=== PATIENT | female | born 1935 | race Caucasian/White ===

== ENCOUNTER 2016-10-29 15:02 | Emergency (ER) | payer MEDICARE ==
[~2016-10-29] VITALS: Ht 167.6 cm; Wt 79.2 kg
[~2016-10-29 15:02] MED LIST: ACET-171 PO; ASCO100089 PO; ASPI81TA3 PO; BUPR-97 PO; CHOL10008 PO; CRAN450T4 PO; CYAN500L4 PO; DIAZ5TAB3 PO; FOLIC ACID PO; FURO-129 PO; GLUC-181 PO; HYDR-4003 PO; ISOS10TA8 PO; LACT1CAP73 PO; METO25TA99 PO; OMEG1CAP25 PO; PRAV10TA2 PO; RIVA20TA PO; UBID300C PO; VIT1TABL25 PO; ZOLP10TA5 PO
[2016-10-29 15:05] VITALS: BP 129/75; PULSE 58; RESP 20; O2SAT 93
--- NOTE | 2016-10-29 15:29 | ED.REPORT ---
HPI-Dyspnea / Wheezing Date of Service Oct 29, 2016 ED Provider: Satya Alcantar MD The pt is a 80 y/o female w/ a hx of CHF, PE, pulmonary HTN, and coronary atherosclerosis presenting to the ED complaining of SOB. She reports waking up 3 times in the middle of the night feeling like she is suffocating, and is short of breath with very mild exertion. The pt uses a pulse oximeter at home and reports her SaO2 levels being low w/ a high of 91%. She also describes feeling fatigued constantly as well as chronic constipation. Denies fever, CP, abdominal pain, vomiting, diarrhea, or nausea. The pt was last hospitalized for a PE two years ago and she reports pulmonary embolisms running in the family. Nursing Notes Stated Complaint: SHORTNESS OF BREATH/SENT FROM URGENT CARE Chief Complaint: SOB Nursing Notes Reviewed: Yes Allergies: Coded Allergies: No Known Allergies (Verified Allergy, Unknown, 11/16/14) Scheduled ([Folic Acid]) 1,000 MCG PO DAILY Ascorbic Acid (Vitamin C) 1,000 Mg Tab.chew 1,000 MG PO DAILY Aspirin Chew (Aspirin Chew) 81 Mg Tab.chew 81 MG PO DAILY Bupropion ER (Wellbutrin XL) 150 Mg Tab.er.24h 150 MG PO DAILY Cholecalciferol (Vitamin D3) (Vitamin D3) 1,000 Unit Tab.chew 1,000 UNIT PO DAILY Cyanocobalamin (Vitamin B-12) (Vitamin B-12) 500 Mcg Lozenge 500 MCG PO DAILY Furosemide (Lasix) 20 Mg Tablet 20 MG PO DAILY Furosemide (Lasix) 20 Mg Tablet 20 MG PO PRN Isosorbide MN (Isosorbide MN) 10 Mg Tablet 30 MG PO DAILY Lactobacillus Combo No.11 (Probiotic) 1 Each Cap.sprink 1 EACH PO DAILY Metoprolol Succinate ER (Metoprolol Succinate ER) 25 Mg Tab.er.24h 25 MG PO BID Madison-3 Fatty Acids/Fish Oil (Madison 3 Fish Oil Softgel) 1 Each Capsule.dr 2 EACH PO DAILY Pravastatin (Pravastatin) 10 Mg Tablet 10 MG PO HS Rivaroxaban (Xarelto) 20 Mg Tablet 20 MG PO 1600 Ubidecarenone (Co Q-10) 300 Mg Capsule 300 MG PO DAILY Vit A,C & E/Lutein/Minerals (Ocuvite with Lutein Tablet) 1 Each Tablet 1 EACH PO DAILY Scheduled PRN Acetaminophen (Acetaminophen) 500 Mg Tablet 1,000 MG PO DAILY PRN PRN For Fever Diazepam (Diazepam) 5 Mg Tablet 5 MG PO PRN PRN PRN For Anxiety Hydrocodone-Acetaminophen 5-325 mg (Hydrocodone-Acetaminophen 5-325 mg) 1 Each Tablet 1 EACH PO Q4-6H PRN PRN For Pain Zolpidem (Zolpidem) 10 Mg Tablet 10 MG PO HS PRN PRN For Insomnia Miscellaneous Medications Cranberry Fruit Concentrate (Cranberry) 450 Mg Tablet 500 MG PO Gluc/Tushar-MSM#1/C/Daniel/Romero/Bor (Osteo Bi-Flex Caplet) 1 Each Tablet 2 EACH PO General Time Seen by MD: 15:28 Chief Complaint Shortness of breath Hx Obtained From: Patient Sudden in Onset?: Yes Symptom Duration: Since onset Recent Healthcare: No recent hospitalization, Recent doctor visit Similar Sx Previous: Yes Past Medical History Past Medical History CHF Pulmonary HTN PE Mthfr Mutation Osteoporosis Spinal stenosis in the lumbar region Coronary atherosclerosis Past Surgical History None reported Family History Pt reports family hx of pulmonary embolisms Smoking History Unknown if Ever Smoker Social History Other Social History: Good social support Ambulatory Status Independent Review of Systems Constitutional: Reports: Fatigue, Denies: Fever Respiratory: Reports: Dyspnea on exertion, Parox nocturnal dyspnea, Shortness of breath Cardiovascular: Denies: Chest pain Complete sys rev & neg: except as marked. GI: Reports: Constipation (Chronic ), Denies: Abdominal pain, Diarrhea, Nausea, Vomiting Physical Exam Initial Vital Signs Vital Signs (First) Date Time Temp Pulse Resp B/P Pulse Ox O2 Delivery O2 Flow Rate FiO2 10/29/16 15:05 36.5 58 20 129/75 93 Room Air Initial VS: Reviewed Head / Eyes: Atraumatic, Normocephalic, PERRL ENT: Mucous membranes moist, Conjunctiva normal, No scleral icterus Extremities: Vascular intact, Neuro intact, No swelling, No tenderness Skin: Warm, Dry, No cyanosis Neurologic: Alert, Oriented, Nonfocal Psychiatric: Mood/affect normal, Behavior normal, Normal thought content General/Constitutional: Awake, Alert Neck: Atraumatic, Supple, Full range of motion Respiratory / Chest: Atraumatic, Breath sounds NL, Breath sounds = bilat Cardiovascular: Heart rate NL, Regular rhythm, Heart sounds NL Interpretation & Diagnostics PROCEDURE: CT ANGIO CHEST PULMONARY EMBOLISM IMPRESSION: No pulmonary embolus is seen, and no pneumonia is identified but there is a mild pulmonary edema pattern likely cardiogenic in origin. Note is made of reflux of contrast from the right heart into the hepatic veins, a sign of right heart insufficiency. No pleural effusions found. Dictated by: Anand Hernandez M.D. on 10/29/2016 at 16:42 Approved by: Anand Hernandez M.D. on 10/29/2016 at 16:44 Lab Results Interpretation Result Diagram: 10/29/16 1530 10/29/16 1530 Test 10/29/16 15:30 10/29/16 15:52 White Blood Count 7.0th/mm3 (3.8-10.1) Red Blood Count 3.77mil/mm3 (3.90-5.20) Hemoglobin 12.2g/dL (12.0-15.6) Hematocrit 37.0% (35.0-46.0) Mean Corpuscular Volume 98.1fL (81-100) Mean Corpuscular Hemoglobin 32.4pg (27.0-35.0) Mean Corpuscular Hemoglobin Concent 33.0% (32.0-37.0) Red Cell Distribution Width 12.9% (12.3-15.4) Platelet Count 278bil/L (150-400) Neutrophils (%) (Auto) 41.5% (40-74) Lymphocytes (%) (Auto) 41.7% (14-46) Monocytes (%) (Auto) 11.9% (4-12) Eosinophils (%) (Auto) 4.4% (0-5) Basophils (%) (Auto) 0.4% (0-3) Sodium Level 137mEq/L (134-144) Potassium Level 4.4mEq/L (3.5-5.2) Chloride Level 100mEq/L (97-108) Carbon Dioxide Level 25mmol/L (18-29) Blood Urea Nitrogen 21mg/dL (8-27) Creatinine 1.15mg/dL (0.57-1.00) Estimat Glomerular Filtration Rate 65mL/min (>59) Glucose Level 80mg/dL (60-99) Calcium Level 9.5mg/dL (8.5-10.1) Total Bilirubin 0.3mg/dL (0.0-1.2) Aspartate Amino Transf (AST/SGOT) 21U/L (0-50) Alanine Aminotransferase (ALT/SGPT) 21U/L (0-32) Alkaline Phosphatase 88U/L (25-165) Troponin T < 0.010ug/L (0.0-0.011) Pro-B-Type Natriuretic Peptide 1198pg/mL (0-738) Total Protein 6.9g/dL (6.4-8.4) Albumin 3.9g/dL (3.4-5.0) Hold Cole Top Tube Received (Received) ECG Interpretation ECG Interpretation: Rate 56 NSR Left axis deviation Time: 16:11 Interpreted by: ED physician ECG Interpretation: Rate 56 NSR Left axis deviation Time: 16:11 Interpreted by: ED physician Re-Eval/Medical Decision Source of Hx: Old records Counseled Regarding: Diagnosis, Lab results, Need for follow-up, When/why to return to ED Discharge & Departure Impression: Primary Impression: CHF (congestive heart failure) Congestive heart failure type: unspecified congestive heart failure type Congestive heart failure chronicity: unspecified congestive heart failure chronicity Qualified Code: I50.9 - Heart failure, unspecified Disposition: Home Discharge Condition All VS Reviewed: Yes Condition: Stable Patient Instructions: Heart Failure (ED) Additional Instructions: Thank for you entrusting us with your care today. Your lab results showed that you do not have a pulmonary embolism but you do have congestive heart failure. Please double your dose of Lasix and I suspect you will feel much better in a day or two. I also recommend 2-3 servings of high potassium foods, like bananas, citrus or avocados, each day. Please call the cardiology clinic tomorrow morning to set an appointment to see Dr. Sales or one of her physician assistants early next week for your congestive heart failure. It will be very helpful if you record your weight each day and show them when you see them next week. Please return to the emergency department if you experience any increasing shortness of breath, chest pain, lose consciousness, any new or worsening symptoms. I hope you feel better soon. Referrals: Manpreet Burton Joshua D MD Scribe Attestation Portions of this note were transcribed by Raf Smith. I, Dr. Alcantar personally performed the history, physical exam and medical decision-making; I reviewed and confirmed the accuracy of the information in the transcribed note. copies to: Manpreet Burton DO; Shai Hughes MD, Kirk H MD Oct 29, 2016 15:29 Raf Smith Oct 29, 2016 16:27
[2016-10-29 15:51] LABS: BASOPHILS % (AUTO) 0.4 % (0-3); EOSINOPHILS % (AUTO) 4.4 % (0-5); MONOCYTES % (AUTO) 11.9 % (4-12); Mean Corpuscular Hemoglobin 32.4 pg (27.0-35.0); Mean Corpuscular Volume 98.1 fL (81-100); NEUTROPHILS % (AUTO) 41.5 % (40-74); Platelet Count 278 bil/L (150-400)
[2016-10-29 16:10] LABS: TROPONIN T < 0.010 ug/L (0.0-0.011)
[2016-10-29 16:21] VITALS: BP 123/56; PULSE 56; RESP 18; O2SAT 93
--- NOTE | 2016-10-29 16:46 | DRSVH ---
PROCEDURE: CT ANGIO CHEST PULMONARY EMBOLISM ([id number]) INDICATIONS: Dyspnea TECHNIQUE: After the administration of intravenous contrast, 2 mm thick sections acquired from the pulmonary api charan to the posterior costophrenic angles. 3-dimensional maximum intensity projection (MIP) coronal a nd sagittal reformats were then acquired through the thorax. For radiation dose reduction, the follo wing was used: automated exposure control, adjustment of mA and/or kV according to patient size. COMPARISON: None. FINDINGS: Image quality: Excellent. Pulmonary arteries: Pulmonary arteries are normal in size, and demonstrate no intraluminal filling d efects to suggest central pulmonary embolism. Lungs and pleura: Lungs are mildly edematous. No pleural effusions or pneumothorax. Central and pe ripheral airways are patent. Mediastinum: Heart size is normal, without pericardial effusion. No mediastinal or hilar adenopathy . Thoracic aorta is normal in caliber and enhancement. Esophagus is normal in caliber, without hiat al hernia. Bones and chest wall: No suspicious bony lesions. Ribs and thoracic spine appear intact throughout. Thyroid gland appears normal where well visualized. No axillary or supraclavicular adenopathy. Abdomen: Visualized upper abdominal solid organs appear normal in the early arterial phase of enhanc ement. IMPRESSION: No pulmonary embolus is seen, and no pneumonia is identified but there is a mild pulmonar y edema pattern likely cardiogenic in origin. Note is made of reflux of contrast from the right hear t into the hepatic veins, a sign of right heart insufficiency. No pleural effusions found. Dictated by: Anand Hernandez M.D. on 10/29/2016 at 16:42 Approved by: Anand Hernandez M.D. on 10/29/2016 at 16:44
[2016-10-29 18:07] VITALS: BP 124/76; PULSE 58; RESP 18; O2SAT 94
== END 2016-10-29 18:09 | disposition home or self-care (01) ==
LOC: SED 15:02
DX: I11.0 Hypertensive heart disease with heart failure (principal); I50.9 Heart failure, unspecified; Z79.82 Long term (current) use of aspirin
CPT/HCPCS: 36415; 71275; 80053; 83880; 84484; 85025; 93005; 99285; Q9967